=== PATIENT | male | born 1965 | race African-American/Black ===

== ENCOUNTER 2021-08-02 06:56 | Emergency (ER) | payer SELFPAY ==
[~2021-08-02] VITALS: Ht 188 cm; Wt 100.0 kg
[~2021-08-02 06:56] MED LIST: MUPIROCIN2 % EX
[2021-08-02 07:36] LABS: HEMATOCRIT 42.6 % (39.0-50.0); HEMOGLOBIN 14.5 g/dl (14.0-18.0); IMMATURE GRANULOCYTES 0.3 % (0.0-5.0); MEAN CELL VOLUME 84.2 fL CALC (80.0-100.0); MEAN CORPUSCULAR HGB 28.7 pG CALC (26.0-32.0); NEUT# 5.65 thou/uL (1.82-7.42); RED BLOOD COUNT 5.06 mill/uL (4.70-6.10); RED CELL DISTRI WIDTH 13.9 % (11.5-15.5)
[2021-08-02 07:39] VITALS: BP 134/81
[2021-08-02 07:41] LABS: GFR > 60 ML/MIN (>=60 (CALC)); GFR FOR AFR.AMER. > 60 ML/MIN (>=60 (CALC))
[2021-08-02 07:53] LABS: ALBUMIN 4.3 g/dL (3.2-5.0); ALKALINE PHOSPHATASE 67 u/l (38-126); ANION GAP 11 (6-22 (CALC)); BILIRUBIN, TOTAL 0.7 mg/dL (0.0-1.4); BUN 15 mg/dL (9-20); BUN/CREATININE RATIO 14 (12-20 (CALC)); CARBON DIOXIDE 26 mmol/l (22-30); CHLORIDE 108 mmol/l (95-108); GFR > 60 ML/MIN (>=60 (CALC)); GFR FOR AFR.AMER. > 60 ML/MIN (>=60 (CALC)); SGOT/AST 29 u/l (17-59); SODIUM 140 mmol/l (137-146)
[2021-08-02 08:01] VITALS: BP 159/86
[2021-08-02 08:31] VITALS: BP 121/85
[2021-08-02 09:01] VITALS: BP 176/99
[2021-08-02 09:33] VITALS: BP 176/99
== END 2021-08-02 09:34 | disposition short-term general hospital (02) | DRG 65 ==
LOC: ED 06:56
PROVIDERS: Emergency Medicine; Family Medicine
DX: I63.232 Cerebral infarction due to unspecified occlusion or stenosis of left carotid arteries (principal); G81.91 Hemiplegia, unspecified affecting right dominant side; R47.01 Aphasia; R29.712 NIHSS score 12; F17.200 Nicotine dependence, unspecified, uncomplicated
CPT/HCPCS: Q9967